=== PATIENT | female | born 1965 | race Caucasian/White ===

== ENCOUNTER 2020-02-28 21:12 | Inpatient (IN) | payer OTHER, SELFPAY ==
[~2020-02-28] VITALS: Ht 167.6 cm; Wt 89.4 kg
--- NOTE | 2020-02-28 21:34 | NUR ---
PATIENT SHAN IN BY EMS WITH REPORT OD COVID POSITIVE 3 WEEKS AGO, HAS LEFT LEG MUSCLE PAIN AND SOB. .SEEN IN NO ACUTE DISTRESS. DULCE HURT EVALUATION.
--- NOTE | 2020-02-28 22:39 | NUR ---
PATIENT WAS SEEN BY . LAB AT THE BEDSIDE TO DRAW BLOOD.ABG WAS DONE BY PULMONARY.
--- NOTE | 2020-02-28 22:40 | NUR ---
TECH AT THE BEDSIDE DOING A PCXR.
[2020-02-28 22:42] LABS: BASOPHIL % 0.1 % (0-2)
[2020-02-28 22:44] LABS: RED CELL DISTRIBUTION WIDTH 14.6 % (11.5-14.5)
[2020-02-28 22:45] LABS: PLATELET COUNT 772 x10^3mcL (130-400)
--- NOTE | 2020-02-28 22:50 | NUR ---
LAB CALL TO REPORT WBC IS 24.9 AND PL[address] IS 772. DR DEWITT NOTIFED.
[2020-02-28 22:54] LABS: BILIRUBIN TOTAL 0.7 mg/dL (0.20-1.00); CALCIUM 10.1 mg/dL (8.5-10.1); CARBON DIOXIDE 21.4 mmol/L (21-32)
[2020-02-28 23:07] LABS: ALBUMIN 1.6 g/dL (3.4-5.0)
[2020-02-28 23:09] LABS: POTASSIUM SERUM 6.4 mmol/L (3.5-5.1)
[2020-02-28 23:10] LABS: CREATININE SERUM 4.6 mg/dL (0.6-1.0)
--- NOTE | 2020-02-29 00:13 | NUR ---
FLUID BOLUS AND ANTIBIOTIC IS INFUSING..XRAY OF THE LEG WAS DONE. PATIENT TRIED TO VOID TO GIVE UA, SMALL AMOUNT OF URINE OBTAINED. PATIENT REQUESTING PHILLIPS. MD SINGH SAME . PHILLIPS CATH INSERTED, SMALL AMOUNT OF URINE IN THE TUBING.
[2020-02-29] MEDS ORDERED: LOTENSIN20 MG PO (00:23)
[2020-02-29] MEDS ORDERED: CALCITRIOL0.5 MCG PO (00:24)
[2020-02-29] MEDS ORDERED: ASPIR 8181 MG PO (00:25)
[2020-02-29] MEDS ORDERED: KEFLEX500 M1 PO (00:25)
[2020-02-29] MEDS ORDERED: GEMFIBROZIL600 MG PO (00:25)
[2020-02-29] MEDS ORDERED: LORATADINE10 M3 PO (00:26)
[2020-02-29] MEDS ORDERED: PANTOPRAZOLE SO40 M1 PO (00:27)
[2020-02-29] MEDS ORDERED: NATURE'S BLEND500 M3 (00:28)
[2020-02-29] MEDS ORDERED: ENVARSUS XR1 MG PO (00:28)
[2020-02-29] MEDS ORDERED: SERTRALINE H20 MG/ML PO (00:28)
--- NOTE | 2020-02-29 01:49 | NUR ---
REPORT WAS GIVEN TO REYNA. PATIENT WILL BE TRANSPORED TO ROOM ICU 9.
--- NOTE | 2020-02-29 02:00 | NUR ---
PATIENT TRANSPORTED TO ICU 9.
[2020-02-29 02:09] LABS: UA SPECIFIC GRAVITY 1.025 (1.005-1.035); microscopic required? YES; urine erythrocyte 3+ (NEGATIVE)
[2020-02-29 03:25] VITALS: BP 97/52
--- NOTE | 2020-02-29 07:28 | NUR ---
SBAR ENDORSED TO JANYINA AND QUESTIONS AND ANSWERED AND SATISFIED.
[2020-02-29 08:00] VITALS: BP 99/58
[2020-02-29 08:22] LABS: CALCIUM 9.6 mg/dL (8.5-10.1); CARBON DIOXIDE 19.7 mmol/L (21-32)
[2020-02-29 08:24] LABS: BASOPHIL % 0.1 % (0-2); RED CELL DISTRIBUTION WIDTH 13.9 % (11.5-14.5)
[2020-02-29 08:29] LABS: CREATININE SERUM 4.1 mg/dL (0.6-1.0); POTASSIUM SERUM 6.7 mmol/L (3.5-5.1)
[2020-02-29 09:06] LABS: PLATELET COUNT 696 x10^3mcL (130-400)
--- NOTE | 2020-02-29 09:19 | NUR ---
DR STEINER INFORMED OF K:6.7, NA:120, PLTS:696, WBC:22.4 THIS MORNING. AWAITING NEW ORDERS. WILL CONTINUE TO MONITOR PT.
--- NOTE | 2020-02-29 11:30 | NUR ---
PT STATES BACK PAIN 12/19. MEDICATED FOR PAIN. SEE EMAR.
[2020-02-29 12:00] VITALS: BP 97/48
[2020-02-29 13:50] LABS: POTASSIUM SERUM 6.3 mmol/L (3.5-5.1)
[2020-02-29 15:45] VITALS: BP 105/55
--- NOTE | 2020-02-29 17:15 | NUR ---
PCR COVID TEST COLLECTED AND SENT TO LAB AT THIS TIME. PT STABLE. WILL CONTINUE TO MONITOR PT.
--- NOTE | 2020-02-29 17:20 | NUR ---
PT REQUESTING PAIN MEDS. STATES 12/19 L HIP PAIN. MEDICATED PRN, SEE EMAR.
[2020-02-29 18:27] LABS: POTASSIUM SERUM 5.9 mmol/L (3.5-5.1)
--- NOTE | 2020-02-29 19:08 | NUR ---
REPORT GIVEN TO CHELSIE ORELLANA. ALLQUESTIONS ANSWERED.
--- NOTE | 2020-02-29 19:30 | NUR ---
RECEIVED REPORT FROM CHELSIE MARKS VIA SBR AND ANSWERED ALL QUESTIONS ASKED.DOCTORS HERE CHECKING PT W/ NO ORDER MADE. TRYNING TO TALK PT FOR TRANS [facility] AND TALK W/ FAMILY THE PLAN.
[2020-02-29 20:00] VITALS: BP 95/50
--- NOTE | 2020-02-29 20:00 | NUR ---
RECEIVED PT AWAKE LYING IN BED AWAKE ALERT AND ORIENTDX4. MOVES ALL EXT. WELL EXCEPT LEFT LEG WEAK WHICH SHE COMPLAINED PAIN WHEN LIFT.PULSES PALPABLE. EKG SINUS W/ NO ECTOPY NOTED.IV INFUSING WELL W/ NO INFILTRATION NOTED.LUNGS CLEAR BILAT. ABDOMEN SOFT W/ ACTIVE BOWEL SOUND.PHILLIPS INTACT AND PATENT.U/S OF THE KIDNEY DONE.TRYING TO TRANSFER PT TO [facility] AND ALL INFORMATION FAXED.NO ACUTE DISTRESS NOTED.
--- NOTE | 2020-02-29 20:10 | NUR ---
CONTACTED [facility] PER DR. GORDO HARRELL'S REQUEST, PATIENT NEEDS HIGHER HIGHER LEVEL OF CARE, BED CONTROL WAS NOTIFIED AND REQUESTED TO FAX FACESHEET, REASON FOR TRANSFER, HMP AND CONSULT'S PROGRESS NOTES.
[2020-02-29 20:39] LABS: POTASSIUM SERUM 5.5 mmol/L (3.5-5.1)
--- NOTE | 2020-02-29 21:11 | NUR ---
NA 121. K5.5, REPORTED TO DR. COLE.
--- NOTE | 2020-02-29 21:56 | NUR ---
RECEIVED CALL FROM LISA NIELSEN SHAW, WITH CONFIRMATION THAT SHE RECEIVED RECORDS SENT VIA FAX, AND REQUESTING FOR DR. GORDO HARRELL'S DIRECT PHONE NUMBER. INFORMATION ABOUT COVID TEST WAS GIVEN.
--- NOTE | 2020-02-29 23:15 | NUR ---
DR. Braxton HARRELL CALLED AND GAVE ORDER TO TRANSFER PATIENT SOON POSSIBLE.
--- NOTE | 2020-02-29 23:20 | NUR ---
RECEIVED CALL FROM MARRY PEARL WITH INSTRUCTION TO OBTAIN AUTHORIZATION FROM [facility] REGARDING TRANSFER, TRANSPORTATION, IN PATIENT CARE AND PHYSICIAN CARE. ZENA PEARL WILL FAX PAPERS NEEDED FOR THE TRANSFER.
--- NOTE | 2020-02-29 23:30 | NUR ---
[facility] CONTACTED FOR ATTEMPT TO OBTAIN AUTHORIZATION, AUTOMATED ANSWERING SERVICE HAS INSTRUCTION TO CALL DURING BUSINESS HOURS.
--- NOTE | 2020-02-29 23:31 | NUR ---
RECEIVED DOCUMENTS FROM [facility]. WILL FORWARD DOCUMENTS TO SOCIAL SERVICE.
[2020-03-01] VITALS (7 sets, daily range): BP systolic 115–142; BP diastolic 61–76; Ht 167.6 cm; Wt 89.4 kg
--- NOTE | 2020-03-01 00:26 | NUR ---
INFORMED PT WHATS GOING ON W/THE TRANSFER AND ACCEPTED.BED REDD SERVED BUT VERY SMALL AMT.OF SOFT STOOL.MADE COMFORTABLE IN BED.AFEBRILE 97.8.ENCOURAGED TO GO TO SLEEP.
--- NOTE | 2020-03-01 01:06 | NUR ---
COMPLAINED OF PAIN AT THE LEFT LEG. NARCO 7.5 MG GIVEN.LEFT LEG ELEVATED ON PILLOW.FEELS BETTER AFTER.
[2020-03-01 02:04] LABS: CALCIUM 9.5 mg/dL (8.5-10.1); CARBON DIOXIDE 20.5 mmol/L (21-32); CREATININE SERUM 3.3 mg/dL (0.6-1.0)
[2020-03-01 02:08] LABS: POTASSIUM SERUM 5.7 mmol/L (3.5-5.1)
--- NOTE | 2020-03-01 02:12 | NUR ---
NA 121,K 5.[address] COLE W/ NO HELDER COTE.THIS WAS DRAWN AT [facility] 03/01/20.
[2020-03-01 06:09] LABS: RED CELL DISTRIBUTION WIDTH 14.3 % (11.5-14.5)
[2020-03-01 06:13] LABS: BASOPHIL % 0 % (0-2); PLATELET COUNT 639 x10^3mcL (130-400)
--- NOTE | 2020-03-01 06:27 | NUR ---
WBC 21.6 TREND DOWN.STILL SLEEPY THIS MORNING.WNATED TO STAY AT LEFT SIDE. IV INFUSING WELL.NO ACUTE DISTRESS NOTED.
[2020-03-01 06:28] LABS: CALCIUM 9.4 mg/dL (8.5-10.1); CARBON DIOXIDE 20.5 mmol/L (21-32); CREATININE SERUM 3.2 mg/dL (0.6-1.0); MAGNESIUM 2.6 mg/dL (1.8-2.4); PHOSPHOROUS 7.2 mg/dL (2.5-4.9)
[2020-03-01 06:32] LABS: POTASSIUM SERUM 6.4 mmol/L (3.5-5.1)
--- NOTE | 2020-03-01 06:36 | NUR ---
LAB CALLED W/ CRITICAL RESULT WBC 21.6,NA 118,K 6.4,BUN 141 AND REPOTED TO W/ NO ORDER MADABDOULAYE.
--- NOTE | 2020-03-01 06:58 | NUR ---
CREATININE 5.5,BUN [address] DUBOIS W/ NO ORDER MADE.
--- NOTE | 2020-03-01 07:42 | NUR ---
CALLED [facility] AT THIS TIME [phone], NO ANSWER AT THIS TIME, LEFT VOICEMAIL FOR PATIENT NEEDING HIGHER LEVEL OF CARE. PATIENT STABLE AT THIS TIME, WILL CONTINUE TO MONITOR.
--- NOTE | 2020-03-01 08:29 | NUR ---
FOLLOW UP WITH [facility], NO ANSWER. VOICEMAIL LEFT, STATING PATIENT NEEDS HIGHER LEVEL OF CARE. PATIENT STABLE WILL CONTINUE TO MONITOR PATIENT.
--- NOTE | 2020-03-01 08:31 | NUR ---
BALTAZAR, CASE MANAGEMENT CALLED AT THIS TIME, FOR FOLLOW UP ON PATIENT. NO ANSWER AT THIS TIME. WILL CALL BACK.
[2020-03-01 08:49] LABS: CALCIUM 9.5 mg/dL (8.5-10.1); CARBON DIOXIDE 19.6 mmol/L (21-32); CREATININE SERUM 3.1 mg/dL (0.6-1.0)
[2020-03-01 08:55] LABS: POTASSIUM SERUM 5.9 mmol/L (3.5-5.1)
--- NOTE | 2020-03-01 09:38 | NUR ---
KARINA, CASE MANAGEMENT CALLED AT THIS TIME, JUAN PABLO GAVE AUTHORIZATION FOR [facility]: [id number], AND [place] AUTHORIZATION: [id number]. WILL CALL [facility] PEAR[facility] AT THIS TIME. PATIENT STABLE WILL CONTINUE TO MONITOR.
--- NOTE | 2020-03-01 11:11 | NUR ---
ZENA DE LOS [place]ANTOS COORDINATOR CALLED AT THIS TIME AND INFORMED THAT ALL SHEETS WHERE FAXED OVER AT THIS TIME. SHE STATES THAT SHE RECEIVED. AUTHORIZATION NUMBER FOR [facility] ALSO GIVEN AT THIS TIME. MAGALI STS THAT THE PATIENT WILL NOT BE ACCEPTED AT THIS TIME, DUE TOPCR COVID RESULTS STILL PENDING. WILL CALL LAB AT THIS TIME, TO SEE IF ANY POSSIBLE WAY TO RECEIVE PATIENT RESULTS. WILL CALL AT THIS TIME. PATIENT STABLE. WILL CONTINUE TO MONITOR.
--- NOTE | 2020-03-01 11:21 | NUR ---
SPOKE WITH [facility] HE STS THAT HE DOES NOT HAVE PATIENT COVID RESULTS BUT GAVE PHONE TO OUTSIDE LAB. WILL CALL AT THIS TIME AND FOLLOW UP. PHONE NUMBER: [phone]
--- NOTE | 2020-03-01 11:26 | NUR ---
CALLED OUTSIDE LAB SHE STS THERE IS A PRELIMINARY FOR COVID RESULTS AND SHE WILL SEND AT THIS TIME. WILL AWAIT FAX AND CONTINUE TO MONITOR PATIENT.
--- NOTE | 2020-03-01 12:50 | NUR ---
FOLLOW UP WITH TATYANA, FROM OUTSIDE LAB. SHE STS SHE CAN NOT FAX RESULTS, DUE TO UNABLE TO RELEASE AT THIS TIME. PRIMARY RN MADE AWARE. WILL CONTINUE TO MONITOR PATIENT.
--- NOTE | 2020-03-01 13:00 | NUR ---
DR YE CALLED. ALL UPDATES PROVIDED. NO NEW ORDERS GIVEN AT THIS TIME. WILL CONTINUE TO MONITOR PT.
[2020-03-01 13:16] LABS: CALCIUM 9.4 mg/dL (8.5-10.1); CARBON DIOXIDE 17.6 mmol/L (21-32); POTASSIUM SERUM 5.5 mmol/L (3.5-5.1)
--- NOTE | 2020-03-01 16:20 | NUR ---
PT PRONED AT THIS TIME, PER DOCTOR ORDER. PT TOLERATED PROCEDURE WELL. NO DISTRESS WAS NOTED. PT IS STABLE. VS ARE WNL. ALL LINES AND TUBES ARE INTACT AND SECURED. WILL CONTINUE TO MONITOR PT.
--- NOTE | 2020-03-01 16:47 | NUR ---
PT STATES PAIN LEVEL 7/10 ON LOWER BACK. REQUESTING PAIN MEDICATION. WILL ADMINISTER, SEE EMAR. WILL CONTINUE TO MONITOR.
--- NOTE | 2020-03-01 18:00 | NUR ---
DR YE AT BEDSIDE. ALL UPDATES PROVIDED. WILL CONTINUE TO MONITOR PT.
[2020-03-01 18:27] LABS: CALCIUM 9.2 mg/dL (8.5-10.1); CREATININE SERUM 2.9 mg/dL (0.6-1.0)
[2020-03-01 18:31] LABS: POTASSIUM SERUM 5.7 mmol/L (3.5-5.1)
--- NOTE | 2020-03-01 19:16 | NUR ---
REPORT GIVEN TO CHELSIE BOOKER. ALL UPDATES PROVIDED.
--- NOTE | 2020-03-01 19:40 | NUR ---
RECEIVED CALL FROM PAT[facility] NIELSEN CARY, STATING THAT THEY WILL ACCEPT THE PATIENT WITHOUT THE PCR COVID RESULT BUT NEED TO PROVIDE THEM WITH THE RESULT ONCE AVAILABLE, PATIENT WILL GO TO ICU UNIT 4452 ROOM 7, IS THE NUMBER TO CALL FOR REPORT. WILL CONTACT [facility] FOR TRANSPORT.
--- NOTE | 2020-03-01 19:50 | NUR ---
RECEIVED PATIENT REPORT FROM CHRISTOPHE HOLGUIN. PATIENT IS AAOX4, DENIES VALENTINE/DIZZINESS. BREATHING EVEN AND UNLABORED ON RA WITH 100% O2SAT. AFEBRILE. DENIES COUGH, RESP DISTRESS. SR ON MONITOR, DENIES CHEST PAIN/PRESSURE. ABD SOFT/NON TENDER, ACTIVE BOWEL SOUNDS. PATIENT BLE EDEMA, PALPABLE PULSES. REPORTS SOME DISCOMFORT ON LEFT HIP AREA, LLE EELEVATED ON PILLOW. IV RH PATENT, INFUSING NS AT 86ML/HR, NO INFILTRATION NOTED. F/C IN PLACE, DRAINING VIA GRAVITY WITH YELLOW COLOR URINE OUTPUT. CALL BUTTON WITHIN REACH. SAFETY PRECAUTIONS IN PLACE. WILL MONITOR.
--- NOTE | 2020-03-01 20:38 | NUR ---
REPORT GIVEN TO NURSE GOETZ AT [facility] , ALL QUESTIONS ADDRESSED. RECEIVING DOCTOR WILL BE DR PARKER. PATIENT AWARE OF TRANSFER AND VERBALIZED UNDERSTANDING.
--- NOTE | 2020-03-01 21:08 | NUR ---
PATIENT IN NO ACUTE DISTRESS. VS STABLE. 100% ON RA, NO RESP DISTRESS. PATIENT CLEANED AND READY TO BE TRANSFERED AT THIS TIME. [facility] HERE TO FOOD COUNSELOR PATIENT AND LEFT UNIT WITH PATIENT IN NO DISTRESS. ALL BELONGINGS WITH PATIENT. CALLED DAUGHTER CONNIE TO UPDATE HER ON TRANSFER, ALL QUESTIONS ADDRESSD.
[2020-03-01 21:10] LABS: CALCIUM 9.4 mg/dL (8.5-10.1); CARBON DIOXIDE 19.6 mmol/L (21-32); CREATININE SERUM 2.9 mg/dL (0.6-1.0)
[2020-03-01 21:17] LABS: POTASSIUM SERUM 5.9 mmol/L (3.5-5.1)
== END 2020-03-02 00:32 | disposition short-term general hospital (02) | DRG 720 ==
LOC: ED 21:12 → IC 02-29 00:08
PROVIDERS: Emergency Medicine; ADMIT Family Medicine; ATTEND Family Medicine
DX: A41.89 Other specified sepsis (principal); U07.1 COVID-19; N17.0 Acute kidney failure with tubular necrosis; E87.5 Hyperkalemia; E87.1 Hypo-osmolality and hyponatremia; E11.22 Type 2 diabetes mellitus with diabetic chronic kidney disease; D68.59 Other primary thrombophilia; I12.9 Hypertensive chronic kidney disease with stage 1 through stage 4 chronic kidney disease, or unspecified chronic kidney disease; N39.0 Urinary tract infection, site not specified; D64.9 Anemia, unspecified; Z94.0 Kidney transplant status; Z88.0 Allergy status to penicillin; Z88.2 Allergy status to sulfonamides; Z79.899 Other long term (current) drug therapy; Z79.82 Long term (current) use of aspirin
CPT/HCPCS: 36600; 82962; 83880; 85378; 87804; G0378; J1956; J2185; J3370; J3490; J7030; J7040; J7507; Q0092; U0003-CS

== ENCOUNTER 2020-05-01 11:42 | Inpatient (IN) | payer OTHER, SELFPAY ==
[~2020-05-01] VITALS: Ht 167.6 cm; Wt 102.1 kg
[~2020-05-01 11:42] MED LIST: ASPIR 8181 MG PO; CALCITRIOL0.5 MCG PO; ENVARSUS XR1 MG PO; GEMFIBROZIL600 MG PO; KEFLEX500 M1 PO; LORATADINE10 M3 PO; LOTENSIN20 MG PO; NATURE'S BLEND500 M3; PANTOPRAZOLE SO40 M1 PO; SERTRALINE H20 MG/ML PO
[2020-05-01 11:54] VITALS: Ht 167.6 cm; Wt 102.1 kg
[2020-05-01 12:28] LABS: PLATELET COUNT 118 x10^3mcL (130-400); RED CELL DISTRIBUTION WIDTH 20.7 % (11.5-14.5)
[2020-05-01 12:37] LABS: CALCIUM 11.1 mg/dL (8.5-10.1); CARBON DIOXIDE 26.6 mmol/L (21-32); CHLORIDE SERUM 97 mmol/L (98-107); CREATININE SERUM 1.7 mg/dL (0.6-1.0); GFR1 34 mL/min; GLUCOSE SERUM 113 mg/dL (74-106); POTASSIUM SERUM 3.4 mmol/L (3.5-5.1); SODIUM SERUM 135 mmol/L (136-145)
[2020-05-01 12:50] LABS: ALKALINE PHOSPHATASE 557 U/L (46-116); ALT/SGPT 21 U/L (14-59); AST/SGOT 279 U/L (15-37); BILIRUBIN TOTAL 0.68 mg/dL (0.20-1.00)
[2020-05-01 12:56] LABS: ATYPICAL LYMPH 1 %; BAND NEUTROPHIL 9 % (0-10)
[2020-05-01 12:57] LABS: METAMYELOCTE 2 % (0-2); MONOCYTE 4 % (0-7); MYELOCYTE 1 % (0-2)
[2020-05-01 12:58] LABS: microscopic required? YES; urine erythrocyte 3+ (NEGATIVE)
[2020-05-01 12:59] LABS: PLATELET MORPHOLOGY LARGE PLATELET SEEN; SEGMENTED NEUTROPHILS 61 % (37-75); rbc morphology (normal/abnorm) ABNORMAL (NORMAL)
[2020-05-01 13:03] LABS: ALBUMIN 1.3 g/dL (3.4-5.0); TOTAL PROTEIN, SERUM 5.1 g/dL (6.4-8.2)
[2020-05-01 13:28] LABS: C REACTIVE PROTEIN 40.7 mg/dL (<=0.9)
[2020-05-01] MEDS ORDERED: PROA PO (15:32)
[2020-05-01] MEDS ORDERED: AMIODARONE HCL100 MG PO (15:32)
[2020-05-01] MEDS ORDERED: CIPRO250 MG PO (15:32)
[2020-05-01] MEDS ORDERED: ASPIRIN ADULT L81 M5 PO (15:33)
[2020-05-01 16:10] VITALS: BP 75/38
[2020-05-01 17:13] VITALS: BP 75/38
[2020-05-01 20:00] VITALS: BP 92/48
[2020-05-02] VITALS: BP 95/58
[2020-05-02 04:00] VITALS: BP 91/58
[2020-05-02 06:23] LABS: PLATELET COUNT 95 x10^3mcL (130-400); RED CELL DISTRIBUTION WIDTH 21.9 % (11.5-14.5)
[2020-05-02 08:30] VITALS: BP 103/60
[2020-05-02 09:02] LABS: BILIRUBIN TOTAL 0.6 mg/dL (0.20-1.00); CALCIUM 12.1 mg/dL (8.5-10.1); CARBON DIOXIDE 18.8 mmol/L (21-32); CREATININE SERUM 1.8 mg/dL (0.6-1.0); MAGNESIUM 2.6 mg/dL (1.8-2.4); PHOSPHOROUS 3.9 mg/dL (2.5-4.9); POTASSIUM SERUM 3.6 mmol/L (3.5-5.1)
[2020-05-02 09:06] LABS: ALBUMIN 1.8 g/dL (3.4-5.0); CHOLESTEROL/HDL RATIO 9.5; TOTAL PROTEIN, SERUM 5.5 g/dL (6.4-8.2)
[2020-05-02 12:00] VITALS: BP 99/61
[2020-05-02 12:30] LABS: CALCIUM 11.7 mg/dL (8.5-10.1); CARBON DIOXIDE 20.6 mmol/L (21-32); CREATININE SERUM 1.8 mg/dL (0.6-1.0); POTASSIUM SERUM 3.8 mmol/L (3.5-5.1)
[2020-05-02 12:30] LABS: BAND NEUTROPHIL 1 % (0-10); MONOCYTE 3 % (0-7); SEGMENTED NEUTROPHILS 76 % (37-75); rbc morphology (normal/abnorm) ABNORMAL (NORMAL)
[2020-05-02 15:45] VITALS: BP 101/62
[2020-05-02] MEDS ORDERED: SEROQUEL50 M1 PO (17:12)
[2020-05-02 20:24] VITALS: BP 98/67
[2020-05-03 05:39] VITALS: BP 90/61
[2020-05-03 07:15] LABS: BILIRUBIN TOTAL 0.8 mg/dL (0.20-1.00); CALCIUM 11.2 mg/dL (8.5-10.1); CARBON DIOXIDE 19.5 mmol/L (21-32); CREATININE SERUM 1.7 mg/dL (0.6-1.0); MAGNESIUM 2.1 mg/dL (1.8-2.4); PHOSPHOROUS 3.2 mg/dL (2.5-4.9); POTASSIUM SERUM 3.3 mmol/L (3.5-5.1)
[2020-05-03 07:22] LABS: ALBUMIN 2.2 g/dL (3.4-5.0); TOTAL PROTEIN, SERUM 5.4 g/dL (6.4-8.2)
[2020-05-03 08:03] LABS: PLATELET COUNT 96 x10^3mcL (130-400); RED CELL DISTRIBUTION WIDTH 21.8 % (11.5-14.5)
[2020-05-03 08:39] VITALS: BP 67/41
[2020-05-03 13:02] VITALS: BP 74/48
[2020-05-03 14:26] LABS: MONOCYTE 4 % (0-7); SEGMENTED NEUTROPHILS 75 % (37-75); rbc morphology (normal/abnorm) ABNORMAL (NORMAL)
[2020-05-03 17:46] VITALS: BP 88/53
[2020-05-03 21:14] VITALS: BP 90/60
[2020-05-04 05:54] VITALS: BP 81/55
[2020-05-04 08:14] LABS: BILIRUBIN TOTAL 0.82 mg/dL (0.20-1.00); CARBON DIOXIDE 17.2 mmol/L (21-32); CREATININE SERUM 2.1 mg/dL (0.6-1.0); MAGNESIUM 2.3 mg/dL (1.8-2.4); PHOSPHOROUS 3.6 mg/dL (2.5-4.9); POTASSIUM SERUM 3.7 mmol/L (3.5-5.1)
[2020-05-04 08:17] LABS: ALBUMIN 2.2 g/dL (3.4-5.0); TOTAL PROTEIN, SERUM 5.4 g/dL (6.4-8.2)
[2020-05-04 08:36] VITALS: BP 83/56
[2020-05-04 09:34] LABS: PLATELET COUNT 88 x10^3mcL (130-400); RED CELL DISTRIBUTION WIDTH 21.6 % (11.5-14.5)
[2020-05-04 10:50] LABS: BAND NEUTROPHIL 1 % (0-10); MONOCYTE 1 % (0-7); SEGMENTED NEUTROPHILS 82 % (37-75); rbc morphology (normal/abnorm) ABNORMAL (NORMAL)
[2020-05-04 12:32] VITALS: BP 84/52
[2020-05-04 16:09] VITALS: BP 90/55
[2020-05-04 20:54] VITALS: BP 104/63
[2020-05-05 05:56] VITALS: BP 93/62
[2020-05-05 07:27] LABS: BASOPHIL % 0.2 % (0-2)
[2020-05-05 07:50] LABS: BILIRUBIN TOTAL 0.9 mg/dL (0.20-1.00); CALCIUM 11.2 mg/dL (8.5-10.1); CARBON DIOXIDE 18.2 mmol/L (21-32); CREATININE SERUM 1.9 mg/dL (0.6-1.0); MAGNESIUM 2.1 mg/dL (1.8-2.4); PHOSPHOROUS 3.4 mg/dL (2.5-4.9); POTASSIUM SERUM 3.6 mmol/L (3.5-5.1)
[2020-05-05 07:52] LABS: ALBUMIN 2.4 g/dL (3.4-5.0)
[2020-05-05 08:10] VITALS: BP 94/69
[2020-05-05 09:46] LABS: PLATELET COUNT 69 x10^3mcL (130-400); RED CELL DISTRIBUTION WIDTH 21.4 % (11.5-14.5)
[2020-05-05 11:54] VITALS: BP 90/64
[2020-05-05 16:42] VITALS: BP 93/64
[2020-05-05 19:53] VITALS: BP 90/66
[2020-05-06 06:31] VITALS: BP 89/67
[2020-05-06 07:34] LABS: BILIRUBIN TOTAL 0.88 mg/dL (0.20-1.00); CALCIUM 12.2 mg/dL (8.5-10.1); CARBON DIOXIDE 14.8 mmol/L (21-32); CREATININE SERUM 2.4 mg/dL (0.6-1.0); MAGNESIUM 2.2 mg/dL (1.8-2.4); PHOSPHOROUS 3.7 mg/dL (2.5-4.9); POTASSIUM SERUM 3.9 mmol/L (3.5-5.1)
[2020-05-06 07:37] LABS: ALBUMIN 2.2 g/dL (3.4-5.0); TOTAL PROTEIN, SERUM 5.3 g/dL (6.4-8.2)
[2020-05-06 08:29] VITALS: BP 98/59
[2020-05-06] MEDS ORDERED: PROA PO (10:45)
[2020-05-06] MEDS ORDERED: ZYVOX600 MG PO (10:47)
[2020-05-06 12:13] VITALS: BP 85/56
[2020-05-06 12:51] VITALS: BP 92/57
[2020-05-06 13:33] LABS: BAND NEUTROPHIL 2 % (0-10); MONOCYTE 4 % (0-7); SEGMENTED NEUTROPHILS 73 % (37-75)
[2020-05-06 13:37] LABS: rbc morphology (normal/abnorm) ABNORMAL (NORMAL); target cell (codocyte) 1+
[2020-05-06 13:38] LABS: PLATELET MORPHOLOGY PLATELETS DECREASED; acanthocyte (spur cell) 1+
[2020-05-06 14:19] LABS: RED CELL DISTRIBUTION WIDTH 22.3 % (11.5-14.5)
[2020-05-06 14:20] LABS: PLATELET COUNT 43 x10^3mcL (130-400)
== END 2020-05-06 14:30 | disposition hospice, home (50) | DRG 720 ==
LOC: ED 11:42 → DU 14:05 → IC 14:05 → DU 05-02 18:35
PROVIDERS: Emergency Medicine; Hospitalist; Internal Medicine; ADMIT Internal Medicine Pulmonary Disease; ATTEND Internal Medicine Pulmonary Disease
PROC: 5A1D70Z Performance of Urinary Filtration, Intermittent, Less than 6 Hours Per Day (ICD-10-PCS; principal; 2020-05-02)
PROC: 5A1D70Z Performance of Urinary Filtration, Intermittent, Less than 6 Hours Per Day (ICD-10-PCS; 2020-05-04)
DX: A41.9 Sepsis, unspecified organism (principal); R65.21 Severe sepsis with septic shock; G93.41 Metabolic encephalopathy; L89.152 Pressure ulcer of sacral region, stage 2; T86.12 Kidney transplant failure; I12.0 Hypertensive chronic kidney disease with stage 5 chronic kidney disease or end stage renal disease; Z94.0 Kidney transplant status; E66.01 Morbid (severe) obesity due to excess calories; N76.4 Abscess of vulva; N39.0 Urinary tract infection, site not specified; Y84.8 Other medical procedures as the cause of abnormal reaction of the patient, or of later complication, without mention of misadventure at the time of the procedure; Z20.828 Contact with and (suspected) exposure to other viral communicable diseases; Z16.21 Resistance to vancomycin; E83.52 Hypercalcemia; C76.0 Malignant neoplasm of head, face and neck; Z93.6 Other artificial openings of urinary tract status; Z88.0 Allergy status to penicillin; Z88.2 Allergy status to sulfonamides; Z91.012 Allergy to eggs
CPT/HCPCS: 82962; 83880; 85378; 87804; G0378; J0696; J0885-EC; J1644; J1720; J2020; J2185; J2370; J2997; J3370; J7030; J7050; J7060; J7507; P9047